=== PATIENT | female | born 1985 | race Caucasian/White ===

== ENCOUNTER 2023-06-29 16:51 | Emergency (ER) | payer MEDICARE, OTHER, SELFPAY ==
[2023-06-29 17:00] VITALS: BP 134/83; BMI 21.6
[2023-06-29 18:37] LABS: HCG, Urine Qualitative Screen Negative
--- NOTE | 2023-06-29 18:42 | ED.GENMED ---
History of Present Illness
General
Chief Complaint: Skin Problem
Source: patient
Exam Limitations: none
Time Seen by Provider: 06/29/23 17:37
Nursing documentation reviewed up to this point in time: agreed with
Travel History
Have you had any contact with someone who has COVID-19?: No
Do you have any symptoms of coronavirus? Fever > 100 degrees, chills, cough, shortness of breath, sore throat, loss of taste or smell, muscle aches, or headache?: No
History of Present Illness
History of Present Illness:
37-year-old female with past medical history of pituitary issue, bipolar disorder presenting to the emergency department today with concerns of discoloration of her fingernails and certain areas of her hands also was asking for test that
she has been having unprotected. No specific concerns of STDs.
Past History
Past History
ED Past Medical History: Psychiatric (Bipolar, OCD, anxiety)
ED Past Surgical History: None
Social History
Tobacco: Non-smoker
Alcohol: None
Drug: None
Personal: Single
Living: with family
Employment: Not employed
Family History
Family History: Other (n/c); Negative Cancer
Review of Systems
Review of Systems
Allergies reviewed?: Yes
All Other Systems: ROS reviewed and negative except as documented in HPI and ROS
Phy Exam
Physical Exam
Physical Exam:
GENERAL: Alert , in no apparent distress
EYE: pupils equal and reactive
NECK: Supple, no significant adenopathy.
ENT: o/p clr, mmm.
CARDIAC: Regular rate and rhythm .
LUNGS: Clear breath sounds bilaterally, no acute respiratory distress, no wheezes/rales/rhonchi
ABDOMEN: Soft, without focal tenderness, no r/g, no cvat
NEUROLOGICAL: Alert and oriented, no focal neuro deficits
SKIN: Slight bluish discoloration to the distal nails and appears very superficial as well as scattered areas on the knuckles. This was cleaned off with nail hungarian remover. Warm and dry, skin intact.
MUSCULOSKELETAL: No edema, well perfused.
PSYCH: Normal and appropriate interaction.
Course
Orders/Labs/Results
Orders:
Orders
06/29/23 17:00
TSH Reflex To Free T4 Urgent
06/29/23 18:20
Test Result ONCE
06/29/23 18:28
HCG, Urine Qualitative Screen Urgent
Date Specimen was Collected: 06/29/23
Time Specimen was Collected: 18:24
06/29/23 17:00
06/29/23 17:00
Vital Signs
Initial and Last Documented VS:
Initial Vital Signs
Temp Pulse Resp BP Pulse Ox
98.2 F 82 16 134/83 99
06/29/23 17:00 06/29/23 17:00 06/29/23 17:00 06/29/23 17:00 06/29/23 17:00
Last Documented Vital Signs
Temp Pulse Resp BP Pulse Ox
98.2 F 57 16 117/76 100
06/29/23 17:00 06/29/23 19:03 06/29/23 19:03 06/29/23 19:03 06/29/23 19:03
MDM/Problems Addressed
MDM/Problems Addressed:
37-year-old female presenting to the emergency department with concerns of discoloration to her hands bilaterally. There was a slight bluish discoloration that seem very superficial and was cleaned off with nail hungarian remover. Does not appear to
be consistent with any true significant blue discoloration of her actual tissue. test negative stable for discharge.
*Critical Care Note
Total Time (30-74mins, 75-104mins- exclusive of procedures): Not Applicable
ED Attending Note
-
Portions of this chart may have been created with voice recognition software.� Occasional wrong word or��sound alike� substitutions may have occurred due to the inherent limitations of voice recognition software.
Discharge Plan
Departure
Patient Disposition: Home (Routine Discharge)
Date of Disposition: 06/29/23
Time of Disposition: 18:42
Patient with high blood pressure during this ER visit?: No
Condition: Good
Covid-19: Not Applicable
Discharge Problem:
Nail abnormality
Prescriptions:
No Action
Unobtainable
0
Referrals:
Bernice Owen CRNP [Family Provider] -
Activity Restrictions/Additional Instructions:
You came to the emergency department today with concerns of discoloration to your fingernails. This appears to be some degree of paint considering we are able to wipe this off during your visit. You are not your vital signs are normal and
your exam is reassuring please follow close with the primary care doctor. Return to the emergency department any worsening, new or concerning symptoms.
Interventions
Interventions:
*Risk Screen - Suicide Last Done: 06/29/23 17:00
*General Assessment Last Done: 06/29/23 17:35
*Neglect/Abuse Screening Last Done: 06/29/23 17:00
ED- Fall Risk Assessment Last Done: 06/29/23 17:35
*ED COVID-19 Vaccine History Last Done: 06/29/23 17:00
*Nursing Disposition Last Done: 06/29/23 19:03
ED-Skin Assessment Last Done: 06/29/23 17:40
Discharge Date and Time
Discharge Date/Time: 06/29/23 19:04
Print Language: [place]
[2023-06-29 19:03] VITALS: BP 117/76
== END 2023-06-29 19:04 | disposition home or self-care (01) ==
LOC: EMR 16:51
PROVIDERS: Physician Assistant; EMERGENCY PHYSICIAN Student in an Organized Health Care Education/Training Program; FAMILY PHYSICIAN Registered Nurse
DX: L60.8 Other nail disorders (principal); F31.9 Bipolar disorder, unspecified; Z32.02 Encounter for pregnancy test, result negative
CPT/HCPCS: 99282; 81025

== ENCOUNTER 2023-08-02 19:52 | Emergency (ER) | payer MEDICARE, OTHER, SELFPAY ==
[2023-08-02 19:52] VITALS: BMI 21.4
[2023-08-02 19:54] VITALS: BP 140/88
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
[2023-08-02] MEDS: ADACEL 0.5 ML IM (21:20)
== END 2023-08-02 22:45 | disposition home or self-care (01) ==
LOC: EMR 19:52
PROVIDERS: EMERGENCY PHYSICIAN Emergency Medicine; FAMILY PHYSICIAN Registered Nurse
DX: S10.91XA Abrasion of unspecified part of neck, initial encounter (principal); S40.011A Contusion of right shoulder, initial encounter; Y04.2XXA Assault by strike against or bumped into by another person, initial encounter; R03.0 Elevated blood-pressure reading, without diagnosis of hypertension; F42.9 Obsessive-compulsive disorder, unspecified; Z23 Encounter for immunization
CPT/HCPCS: 99282; 90471; 90715